=== PATIENT | female | born 1990 | race Caucasian/White ===

== ENCOUNTER → 2020-04-24 | Outpatient (CLI) | payer OTHER | LOC: OD 10:23 | PROVIDERS: ATTEND Nurse Practitioner Primary Care | DX: R10.2 Pelvic and perineal pain (principal); N83.209 Unspecified ovarian cyst, unspecified side | CPT/HCPCS: 36415; 84702 ==

== ENCOUNTER 2020-04-29 17:07 | Emergency (ER) | payer OTHER ==
[2020-04-29] MEDS ORDERED: HYDROCODONE/ACETAMINOPHEN 10-325 MG TABLET PO ONE (17:46)
--- NOTE | 2020-04-29 18:29 | ER Document Report ---
ED Medical Screen (RME) - General Chief Complaint: Low Back Pain Stated Complaint: LOWER BACK PAIN Time Seen by Provider: 04/29/20 17:41 Primary Care Provider: TOM CARPENTER NP [Primary Care Provider] - Follow up as needed Notes: Patient is a 29-year-old female who presents emergency department with a chief complaint of low back pain and pelvic pain. Patient recently had her IUD removed and there was also a hemorrhagic cyst in the area. Patient's primary care provider referred her to the emergency department, as she continues to have pain. She has an appointment on Tuesday to have the cyst taken care of. Mason sutton's [employer] took an ultrasound. States that the cyst is still there. Denies any drug use. Patient has history of melanoma. Exam: Tender low back. I have greeted and performed a rapid initial assessment of this patient. A comprehensive ED assessment and evaluation of the patient, analysis of test results and completion of medical decision making process will be conducted by an additional ED providers. TRAVEL OUTSIDE OF THE [place] IN LAST 30 DAYS: No - Related Data Allergies/Adverse Reactions: Penicillins Allergy (Verified 04/29/20 17:40) Sulfa (Sulfonamide Antibiotics) Allergy (Verified 04/29/20 17:40) Past Medical History Pulmonary Medical History: Reports: Hx Asthma Renal/ Medical History: Reports: Hx Kidney Stones - pt states currently has one on the right side GI Medical History: Reports: Hx Gastroesophageal Reflux Disease, Hx Ulcer Musculoskeltal Medical History: Reports Hx Musculoskeletal Trauma - rt foot Psychiatric Medical History: Reports: Hx Anxiety Traumatic Medical History: Reports: Hx Fractures Past Surgical History: Reports: Hx Gynecologic Surgery - D&C at 22 weeks, Hx Orthopedic Surgery - right knee for osteochrondremia - Immunizations Immunizations up to date: Yes Hx Diphtheria, Pertussis, Tetanus Vaccination: Yes Physical Exam - Vital signs Vitals: Temp Resp BP Pulse Ox 98.0 F 28 H 140/111 H 98 04/29/20 17:32 04/29/20 17:32 04/29/20 17:32 04/29/20 17:32 Course - Vital Signs Vital signs: Temp Pulse Resp BP Pulse Ox 98.0 F 28 H 140/111 H 98 04/29/20 17:32 04/29/20 17:32 04/29/20 17:32 04/29/20 17:32 - Laboratory Result Diagrams: 04/29/20 18:09 04/29/20 18:09 Laboratory results interpreted by me: 04/29/20 04/29/20 04/29/20 18:09 18:09 18:09 Baso % (Auto) 2.5 H Total Bilirubin 1.5 H Urine Protein 100 H Urine Ketones 20 H Urine Urobilinogen 4.0 H Doctor's Discharge - Discharge Referrals: TOM CARPENTER NP [Primary Care Provider] - Follow up as needed
[2020-04-29 18:31] LABS: ABSOLUTE BASOPHILS # (AUTO) 0.2 10^3/uL (0.0-0.2); ABSOLUTE EOSINOPHILS # (AUTO) 0.1 10^3/uL (0.0-0.6); ABSOLUTE LYMPHOCYTES (AUTO) 3.8 10^3/uL (0.5-4.7); ABSOLUTE MONOCYTES (AUTO) 0.8 10^3/uL (0.1-1.4); ABSOLUTE NEUT (AUTO) 3.8 10^3/uL (1.7-8.2); BASOPHILS % (AUTO) 2.5 % (0-2); EOSINOPHILS % (AUTO) 0.9 % (0-6); LYMPHOCYTES % (AUTO) 43.9 % (13-45); MEAN CORPUSCULAR HEMOGLOBIN 32.2 pg (27.0-33.4); MEAN CORPUSCULAR HGB CONC 35.8 g/dL (32.0-36.0); MEAN CORPUSCULAR VOLUME 90 fl (80-97); MONOCYTES % (AUTO) 8.9 % (3-13); PLATELET COUNT 320 10^3/uL (150-450); RED BLOOD COUNT 4.67 10^6/uL (3.72-5.28); RED CELL DISTRIBUTION WIDTH 13.6 % (11.5-14.0); SEGMENTED NEUTROPHILS % (AUTO) 43.8 % (42-78); TOTAL CELLS COUNTED % (AUTO) 100 %; WHITE BLOOD COUNT 8.6 10^3/uL (4.0-10.5)
[2020-04-29 18:38] LABS: APPEARANCE,URINE SLIGHTLY-CLOUDY; BILIRUBIN,URINE NEGATIVE (NEGATIVE); COLOR,URINE YELLOW; GLUCOSE, URINE NEGATIVE (NEGATIVE); KETONES,URINE 20 mg/dL (NEGATIVE); LEUKOCYTE ESTERASE,URINE NEGATIVE (NEGATIVE); NITRITE,URINE NEGATIVE (NEGATIVE); PROTEIN,URINE 100 mg/dL (NEGATIVE); URINE SPECIFIC GRAVITY 1.023
[2020-04-29 18:50] LABS: ALBUMIN 4.4 g/dL (3.5-5.0); ALKALINE PHOSPHATASE 66 U/L (38-126); ANION GAP 6 (5-19); ASPARTATE AMINO TRANSFERASE 20 U/L (14-36); BILIRUBIN,DIRECT 0.2 mg/dL (0.0-0.4); BILIRUBIN,TOTAL 1.5 mg/dL (0.2-1.3); BLOOD UREA NITROGEN 13 mg/dL (7-20); CALCIUM 9.4 mg/dL (8.4-10.2); CARBON DIOXIDE 28 mmol/L (22-30); CHLORIDE 106 mmol/L (98-107); GLUCOSE 97 mg/dL (75-110); POTASSIUM 4.1 mmol/L (3.6-5.0); TOTAL PROTEIN 7.1 g/dL (6.3-8.2)
[2020-04-29 21:36] LABS: INTERNATIONAL RATION (INR) 1.04; PARTIAL THROMBOPLASTIN TIME 27.2 SEC (23.5-35.8); PROTHROMBIN TIME 13.8 SEC (11.4-15.4)
[2020-04-29] MEDS ORDERED: LORAZEPAM INJ 2 MG/1 ML VIAL IV ONE (22:30)
[2020-04-29] MEDS ORDERED: MORPHINE SULFATE 10 MG/ML INJ IV ONE ×2 (22:30→23:57)
[2020-04-29] MEDS ORDERED: LORAZEPAM INJ 2 MG/1 ML VIAL IV PRN (22:51)
--- NOTE | 2020-04-29 23:29 | RADIOLOGY REPORT (SQ) ---
EXAM DESCRIPTION: US PELVIS TRANSVAGINAL COMPLETED DATE/TME: 04/29/2020 22:29 CLINICAL HISTORY: 29 years, Female, right pelvic pain cyst r/o torsion COMPARISON: None. TECHNIQUE: Emergent pelvic ultrasound LIMITATIONS: None. FINDINGS: The uterus measures 7.0 x 4.2 x 3.8 cm. The myometrium is homogenous. The endometrium measures 2.7 mm in thickness. The right ovary measures 4.9 x 2.5 x 2.8 cm, the left 3.3 x 1.8 x 2.1 cm. Arterial and venous flow to each ovary. No solid adnexal mass. There is a 4.2 x 2.3 cm right adnexal cyst. This does contain some minimal internal low-level echoes and peripheral septation. No solid adnexal mass. No free fluid IMPRESSION: 4.2 cm slightly complex right adnexal cyst. Recommend follow-up ultrasound in 6-12 weeks, as per below. Recommendations for f/u of ovarian complex cysts (1): Endometrioma: <= 7 cm: US f/u 6-12 wks. If not surgically resected, US f/u annually. >7 cm: Consider MR w/IVC or surgical evaluation. If not surgically resected, US f/u annually. Dermoid: <= 5 cm: MR w/IV contrast. If not surgically resected, US f/u annually. >5 cm: Surgical evaluation. If not surgically resected, MR w/IVC; then US f/u annually Indeterminate cyst - multiple thin <=3 mm septations: Any size in any age: Consider surgical evaluation. Indeterminate cyst - non-hyperechoic nodule w/o blood flow: Any size in any age: Consider MR w/IVC or surgical evaluation. Indeterminate cyst - other, not classic for but suggestive of hemorrhagic cyst, endometrioma or dermoid: Pre-menopause: <= 7 cm: US f/u 6-12 weeks. If unchanged, continue f/u with US or consider MR w/IVC. If these do not confirm endometrioma or dermoid, consider surgical evaluation. >7 cm: Consider MR w/IVC or surgical evaluation. Post-menopause (>=1 year from last menstrual period): Any size: Consider surgical evaluation. Cyst worrisome for malignancy (thick, irregular >=3 mm septations or nodule with blood flow): Any size in any age: Consider surgical evaluation. (1) Recommendations based upon the 2010 SRU Consensus Conference Statement on the Management of Asymptomatic Ovarian and Other Adnexal Cysts Imaged at US: Radiology. 2009;256(3):94-00 copyright 2011 [employer]- All Rights Reserved
[2020-04-29] MEDS ORDERED: KETOROLAC TROMETHAMINE INJ/PF 30 MG/1 ML SDV IV ONE (23:57)
--- NOTE | 2020-04-30 01:37 | ER Document Report ---
ED General - General Chief Complaint: Pelvic Pain Stated Complaint: LOWER BACK PAIN Time Seen by Provider: 04/29/20 17:41 Primary Care Provider: MITCHELL CARPENTER MD [ACTIVE STAFF] - Follow up as needed TOM CARPENTER NP [Primary Care Provider] - Follow up as needed Notes: 29-year-old female history of ovarian cysts, asthma, GERD, prior D&C presents with intermittent pelvic pain over the past 2 weeks. Patient says she noticed right pelvic pain intermittently and then became more frequent and more severe over the last several days and now constant for the past 3 days. Patient feels of pain in right pelvis and radiating toward back. Patient was seen at [facility] office approximately 2 weeks ago and had IUD removed which may have been embedded into uterine wall but OB says that he remove the entire IUD intact. Patient says pain did not improve after IUD removal and went to OB office today who referred her to ED. patient denies any vaginal bleeding, discharge, fever, trauma, urinary symptoms, drug use, change in gait, weakness or numbness, bowel or bladder symptoms TRAVEL OUTSIDE OF THE [place] IN LAST 30 DAYS: No - Related Data Allergies/Adverse Reactions: Penicillins Allergy (Verified 04/29/20 17:40) Sulfa (Sulfonamide Antibiotics) Allergy (Verified 04/29/20 17:40) Home Medications: celexa. adderall. xanex. zrytec. flonase Past Medical History - General Information source: Patient - Social History Smoking Status: Current Every Day Smoker Chew tobacco use (# tins/day): No Frequency of alcohol use: None Drug Abuse: None Family History: Reviewed & Not Pertinent Pulmonary Medical History: Reports: Hx Asthma Renal/ Medical History: Reports: Hx Kidney Stones - pt states currently has one on the right side GI Medical History: Reports: Hx Gastroesophageal Reflux Disease, Hx Ulcer Musculoskeletal Medical History: Reports Hx Musculoskeletal Trauma - rt foot Psychiatric Medical History: Reports: Hx Anxiety Traumatic Medical History: Reports: Hx Fractures Past Surgical History: Reports: Hx Gynecologic Surgery - D&C at 22 weeks, Hx Orthopedic Surgery - right knee for osteochrondremia - Immunizations Immunizations up to date: Yes Hx Diphtheria, Pertussis, Tetanus Vaccination: Yes Review of Systems - Review of Systems Notes: REVIEW OF SYSTEMS: CONSTITUTIONAL : Denies fever, chills, or sweats. EENT: Denies recent cold/sinus symptoms, denies throat pain CARDIOVASCULAR: Denies chest pain, DELILAH RESPIRATORY: Denies cough, denies shortness of breath. GASTROINTESTINAL: Denies abdominal pain, nausea/vomiting. GENITOURINARY: Denies difficulty urinating, painful urination. FEMALE GENITOURINARY: Denies abnormal vaginal bleeding, vaginal discharge. MUSCULOSKELETAL: Denies neck pain, extremity pain SKIN: Denies rash or skin lesions. HEMATOLOGIC : Denies easy bruising or bleeding. LYMPHATIC: Denies swollen, enlarged glands. NEUROLOGICAL: Denies headache, denies change in gait. PSYCHIATRIC: Denies anxiety or stress or depression. Physical Exam - Vital signs Vitals: Temp Resp BP Pulse Ox 98.0 F 28 H 140/111 H 98 04/29/20 17:32 04/29/20 17:32 04/29/20 17:32 04/29/20 17:32 - Notes Notes: PHYSICAL EXAMINATION: GENERAL: Uncomfortable appearing tearful young adult female in no acute distress HEAD: Atraumatic, normocephalic. EYES: Pupils equal round and appropriate constriction, sclera anicteric, conjunctiva are normal. ENT: nares patent, moist mucous membranes. NECK/BACK: Normal range of motion, supple without lymphadenopathy, no midline spinal tenderness or deformity LUNGS: Breath sounds clear to auscultation bilaterally and equal. No wheezes rales or rhonchi. HEART: Regular rate and rhythm without murmurs ABDOMEN: Soft, nontender, no guarding, no masses, no CVAT PELVIC: No discharge, no blood, normal closed os, no CMT, no adnexal masses, positive right adnexal tenderness EXTREMITIES: Normal range of motion, no pitting or edema. No cyanosis. 5 out of 5 strength in bilateral lower extremities, normal sensation NEUROLOGICAL: Awake, alert, conversing appropriately, moves all extremities spontaneously. PSYCH: Normal mood, normal affect. SKIN: Warm, Dry, normal turgor, no rashes or lesions noted. Pelvic exam chaperoned by ALIVIA Jewell Course - Re-evaluation Re-evalutation: 04/30/20 06:08 Right pelvic pain with positive cysts, small ovary with normal venous and arterial blood flow and in doing presentation not consistent with torsion. Ovarian cyst adequately explains patient's symptoms and because of significant pain I called Dr. Love for consultation for possible emergent removal. Dr. Love evaluated patient and patient agreed to follow-up with Dr. Carpenter outpatient for elective cystectomy. COVID-19 test sent to expedite patient's ability to schedule elective surgery. Back pain benign and obesity referred from cyst, no rmal back exam and no neuro symptoms. Patient felt greatly improved after pain meds in ED and was discharged with p.o. pain medication, given extensive follow- up instructions and return to ED precautions which she demonstrated understanding of. - Vital Signs Vital signs: Temp Pulse Resp BP Pulse Ox 97.7 F 95 16 108/41 L 98 04/30/20 01:50 04/30/20 01:50 04/30/20 01:50 04/30/20 01:50 04/30/20 01:50 - Laboratory Result Diagrams: 04/29/20 18:09 04/29/20 18:09 Laboratory results interpreted by me: 04/29/20 04/29/20 04/29/20 18:09 18:09 18:09 Baso % (Auto) 2.5 H Total Bilirubin 1.5 H Urine Protein 100 H Urine Ketones 20 H Urine Urobilinogen 4.0 H Discharge - Discharge Clinical Impression: Pelvic pain Ovarian cyst Qualifiers: Laterality: right Qualified Code(s): N83.201 - Unspecified ovarian cyst, right side Disposition: HOME, SELF-CARE Additional Instructions: Pelvic Pain There are many causes of pain in the pelvic area. The cause could be the tubes, ovaries, uterus, intestines, appendix, pelvic muscles and connective tissue, or the urinary tract. The cause of your pelvic pain is not clear. However, it seems safe to treat you outside the hospital. If the pain sounds like a temporary problem, we sometimes wait to see if it goes away. Other patients may need additional tests, such as pelvic ultrasound or cultures. Conditions may change. Call us or come back for reexamination if any problems occur, such as: (1) Pain that becomes more severe, steady, or becomes concentrated in one specific area. Also, pain that is more severe with movement or coughing. (2) Vomiting that persists or becomes more frequent. (3) Blood in the vomitus, urine, or bowel movements. Blood in the stool may have a tarry or black appearance. (4) Shaking chills or fever greater than 100 degrees. (5) The abdomen becomes more distended or swollen. (6) Bowel movements cease. (7) Heavy vaginal bleeding. Ovarian Cyst Your examination shows the presence of an ovarian cyst. This is a ball of fluid attached to the ovary. Ovarian cysts in women of child-bearing age are usually innocent. However, the cyst may cause pain when it grows or bursts. An innocent ovarian cyst will usually go away by itself. When the cyst becomes painful, you should rest. Pain medication may be required. Some women find a hot water bottle soothing. The pain usually resolves within one or two days. After menopause, an ovarian cyst may mean a tumor, and requires more aggressive evaluation -- usually surgery is recommended to remove or biopsy the cyst. A very large cyst requires evaluation at any age. Most cysts (even the innocent ones) require follow-up examination. Call the doctor or return at any time if the pain increases significantly, if you become faint, or if you experience vaginal bleeding. Follow-up with your ELECT[employer]ER/FIREMAN Dr. Wallace within 3 days. Return to the ED immediately if you have worsening pain, dizziness, fainting, fever, vaginal discharge, vomiting or inability to keep down liquids by mouth, or any other worsening or alarming symptoms. Follow-up with your primary doctor within 1 week. You had mildly elevated bilirubin and protein in your urine, increase your liquid intake and follow this up with your primary doctor. Prescriptions: Oxycodone HCl/Acetaminophen [Percocet 5-325 mg Tablet] 1 tab PO Q6HP PRN #10 tablet PRN Reason: Severe Pain Referrals: TOM CARPENTER NP [Primary Care Provider] - Follow up as needed MITCHELL CARPENTER MD [ACTIVE STAFF] - Follow up as needed
[2020-04-30 01:58] VITALS: BP 108/41
== END 2020-04-30 01:58 | disposition home or self-care (01) ==
LOC: ER 17:07
DX: N83.201 Unspecified ovarian cyst, right side (principal); R10.2 Pelvic and perineal pain; Z98.890 Other specified postprocedural states; J45.909 Unspecified asthma, uncomplicated; F41.9 Anxiety disorder, unspecified; Z79.899 Other long term (current) drug therapy; Z88.0 Allergy status to penicillin; Z88.2 Allergy status to sulfonamides; Z20.828 Contact with and (suspected) exposure to other viral communicable diseases; M54.5 Low back pain
CPT/HCPCS: 99285; 96374; 96375; 86900; 86901; 36415; 86850; 83690; 85025; 85610; 85730; 87635; 81025; 80053; 81001; 76830; 93976; J1885; J2270 ×2; J2060; C9803